=== PATIENT | male | born 1980 | race Caucasian/White ===

== ENCOUNTER 2020-01-30 05:21 | Emergency (ER) | payer MEDICAID, OTHER ==
[~2020-01-30] VITALS: Ht 185.4 cm; Wt 109.1 kg
[~2020-01-30 05:21] MED LIST: NEOM10SO7 OT
[2020-01-30 06:27] VITALS: BP 130/91
== END 2020-01-30 08:42 | disposition home or self-care (01) ==
LOC: ER 05:22
DX: J02.9 Acute pharyngitis, unspecified (principal); B34.9 Viral infection, unspecified; H92.01 Otalgia, right ear; Z88.7 Allergy status to serum and vaccine; Z79.2 Long term (current) use of antibiotics; Z98.890 Other specified postprocedural states
CPT/HCPCS: 99281